=== PATIENT | male | born 1960 | race Caucasian/White ===

== ENCOUNTER 2016-12-21 10:48 | Observation (INO) | payer SELFPAY ==
[2016-12-21 12:17] LABS: BASO # 0.1 K/uL (0.0-0.2); BASO % 0.7 % (0.0-2.0); EOS # 0.5 K/uL (0.0-0.7); EOS % 6.2 % (0.0-4.0); HEMOGLOBIN 11.7 g/dL (12.0-18.0); LYMPH # 2.2 K/uL (1.0-4.3); LYMPH % 27.5 % (20.0-40.0); MEAN CELL VOLUME 85.3 fL (80.0-94.0); MEAN CORPUSCULAR HEMOGLOBIN 28.3 pg (27.0-31.0); MEAN CORPUSCULAR HGB CONC 33.2 g/dL (33.0-37.0); MEAN PLATELET VOLUME 8.7 fL (7.2-11.7); MONO # 0.5 K/uL (0.0-0.8); MONO % 6.7 % (0.0-10.0); NEUT # 4.7 K/uL (1.8-7.0); NEUT % 58.9 % (50.0-75.0); RBC 4.14 Mil/uL (4.40-5.90); RED CELL DISTRIBUTION WIDTH 13.8 % (11.5-14.5); WHITE BLOOD COUNT 7.9 K/uL (4.8-10.8)
[2016-12-21 12:25] LABS: PROTHROMBIN TIME 11.7 SECONDS (9.7-12.2)
[2016-12-21 12:27] LABS: ALBUMIN 3.4 g/dL (3.5-5.0)
[2016-12-21 12:29] LABS: GFR AFRICAN-AMERICAN > 60; GFR NON-AFRICAN AMERICAN > 60
[2016-12-21 12:30] LABS: ALT/SGPT 23 U/L (21-72); AST/SGOT 23 U/L (17-59); BLOOD UREA NITROGEN 15 mg/dL (9-20); CALCIUM 8.6 mg/dl (8.6-10.4)
[2016-12-21 12:38] LABS: CK-MB 0.82 ng/mL (0.0-3.38)
[2016-12-21 12:39] LABS: B-TYPE NATRIURETIC PEPTIDE 480 pg/mL (0-900)
--- NOTE | 2016-12-21 13:01 | RAD ---
HISTORY: Chest pain COMPARISON: No prior. FINDINGS: LUNGS: Poor inspiration with low lung volumes, minor crowded bronchovascular markings and mild bibasilar atelectasis. Central pulmonary vasculature is slightly increased likely due to poor inspiration as well. PLEURA: No significant pleural effusion identified, no pneumothorax apparent. CARDIOVASCULAR: Sternotomy wires and CABG clips. OSSEOUS STRUCTURES: Cardiomegaly. No significant abnormalities. VISUALIZED UPPER ABDOMEN: Normal. OTHER FINDINGS: None. IMPRESSION: Poor inspiration with low lung volumes, minor crowded bronchovascular markings and mild bibasilar atelectasis. Central pulmonary vasculature is slightly increased likely due to poor inspiration as well.
--- NOTE | 2016-12-21 13:43 | C.PDOC ---
History Of Present Illness Patient is a 56 y/o male, whose PMHx includes diabetes, HTN, that presents to the ED for evaluation of chest pain, and swelling to lower extremities. Patient reports having bypasss surgery more than a month ago, and denies following up with PMD or oncology admin after the surgery. Patient states he ran out of his chronic medications, but is unable to recall name of any of his medications. Patient history translated by computer plant production worker (Farshad Crow [id number]). Time Seen by Provider: 12/21/16 12:04 Chief Complaint (Nursing): Chest Pain History Per: Patient, Account Support Analyst History/Exam Limitations: language barrier Onset/Duration Of Symptoms: Days Current Symptoms Are (Timing): Still Present Quality: Tightness, "Pain" Associated Symptoms: denies: Nausea, Dyspnea, Diaphoresis, Syncope Modifying Factors: None Exacerbating Factors: None Alleviating Factors: None Recent travel outside of the [place]: No Additional History Per: Patient Past Medical History Reviewed: Historical Data, Nursing Documentation, Vital Signs Vital Signs: Last Vital Signs Temp 97.9 F 12/21/16 13:02 Pulse 77 12/21/16 13:02 Resp 16 12/21/16 13:02 BP 129/83 12/21/16 13:02 Pulse Ox 96 12/21/16 15:16 - Medical History PMH: Diabetes, HTN, Hypercholesterolemia Surgical History: Hernia Repair (x2) Family History: States: Unknown Family Hx - Social History Hx Alcohol Use: No Hx Substance Use: No - Immunization History Hx Tetanus Toxoid Vaccination: No Hx Influenza Vaccination: No Hx Pneumococcal Vaccination: No Review Of Systems Except As Marked, All Systems Reviewed And Found Negative. Constitutional: Negative for: Fever, Chills Cardiovascular: Positive for: Chest Pain. Negative for: Palpitations, Light Headedness Respiratory: Negative for: Cough, Shortness of Breath, Sputum Gastrointestinal: Negative for: Nausea, Vomiting, Abdominal Pain Musculoskeletal: Negative for: Leg Pain Skin: Positive for: Other (BL leg swelling) Neurological: Negative for: Weakness, Numbness, Headache, Dizziness Physical Exam - Physical Exam Appears: Non-toxic, No Acute Distress Skin: Normal Color, Warm, Dry Head: Atraumatic, Normacephalic Eye(s): bilateral: Normal Inspection, EOMI Neck: Normal ROM, Supple Chest: Symmetrical, No Tenderness Cardiovascular: Rhythm Regular, No Murmur Respiratory: Decreased Breath Sounds, No Rales, No Rhonchi, No Wheezing Gastrointestinal/Abdominal: Soft, No Tenderness, No Guarding, No Rebound Extremity: Normal ROM, No Tenderness, Pedal Edema, Capillary Refill (<2 sec.), No Deformity Pulses: Left Dorsalis Pedis: Normal, Right Dorsalis Pedis: Normal Neurological/Psych: Oriented x3, Normal Speech, Normal Cognition, Normal Motor, Normal Sensation ED Course And Treatment - Laboratory Results Result Diagrams: 12/21/16 12:08 12/21/16 12:08 ECG: Interpreted By Me ECG Rhythm: Sinus Rhythm, ST/T Changes Interpretation Of ECG: Q in III and aVF O2 Sat by Pulse Oximetry: 96 (on RA) Pulse Ox Interpretation: Normal - Other Rad CXR X-Ray: Viewed By Me, Read By Radiologist Interpretation: Accession No. : [id number]. Patient Name / ID : WANDA PATTON / [id number]. Exam Date : 12/21/2016 12:00:20 ( Approved ). Study Comment : Sex / Age : M / [id number]. Creator : Jesus Alberto Quezada MD. Dictator : Jesus Alberto Quezada MD. Applications Developer : Heel Coverer : Jesus Alberto Quezada MD. Approver2 : Report Date : 12/21/2016 12:59:37. My Comment : . HISTORY: Chest pain. COMPARISON: No prior. FINDINGS: LUNGS: Poor inspiration with low lung volumes, minor crowded bronchovascular markings and mild bibasilar atelectasis. Central pulmonary vasculature is slightly increased likely due to poor inspiration as well. PLEURA: No significant pleural effusion identified, no pneumothorax apparent. CARDIOVASCULAR: Sternotomy wires and CABG clips. OSSEOUS STRUCTURES: Cardiomegaly. No significant abnormalities. VISUALIZED UPPER ABDOMEN: Normal. OTHER FINDINGS: None. IMPRESSION: Poor inspiration with low lung volumes, minor crowded bronchovascular markings and mild bibasilar atelectasis. Central pulmonary vasculature is slightly increased likely due to poor inspiration as well. Progress Note: Blood work, CXR, EKG ordered and reviewed. Case was d/w Hospitalist environmental lawyer who instructed to put patient for tele obs on service. Disposition - Disposition Disposition: HOSPITALIZED Disposition Time: 14:24 Condition: FAIR - Clinical Impression Clinical Impression: Chest pain, Lower extremity edema - PA / DEGREASER OPERATOR / Resident Statement MD/DO has reviewed & agrees with the documentation as recorded. - Scribe Statement The provider has reviewed the documentation as recorded by the Scribe Raymundo Parekh All medical record entries made by the Маринаibjerilyn were at my direction and personally dictated by me. I have reviewed the chart and agree that the record accurately reflects my personal performance of the history, physical exam, medical decision making, and the department course for this patient. I have also personally directed, reviewed, and agree with the discharge instructions and disposition. Decision To Admit - Pt Status Changed To: Hospital Disposition Of: Observation - . Bed Request Type: Telemetry Patient Diagnosis: Chest pain, Lower extremity edema
--- NOTE | 2016-12-21 15:25 | CP.PCM.HP ---
<Marzena Blair - Last Filed: 12/21/16 18:31> History of Present Illness - History of Present Illness History of Present Illness: CC: chest pressure HPI: 56 year old male with PMHx significant for diabetes, HTN, hypercholesterolemia , s/p suspected CABG procedure at [facility] one month prior presents with chest pressure at rest for the past week with accompanying swelling of the lower extremities bilaterally. Patient states that the swelling has been intermittent off and on since the procedure. He denies radiation of pain, though admits to it being reproducible with palpation. Patient states that following the procedure, he was asked to take 6 medications for which he does not know the names of. He states that he was taking the medications until he ran out. He was asked to follow up with a entry level buyer after being discharged from [facility] however, he could not afford the $400 cost associated with the doctor's visit. Patient admits to paresthesias in his right hand. He admits to blurry vision for the past few weeks as well. He denies shortness of breath , headaches, palpitations, nausea, vomiting, diarrhea, constipation, recent travel, back pain or cough at this time. Patient speaks sami and thus health screener services were used for this evaluation. ([facility] #[id number]) PMHx- as stated above PSHx- suspected CABG at [facility], 2 hernia repair surgeries, vessel graft. Fam Hx- Mom had HTN Social Hx- Patient smoked 2 ppd for 30-40 years. He states that he quit just prior to the surgery at [facility] Meds- 6 medications but does not know the name. Will ask friend to bring in meds Allergies- NKDA Does not follow with PMD or Health Information Technician outpatient. Present on Admission - Present on Admission Any Indicators Present on Admission: No Review of Systems - Review of Systems Systems not reviewed;Unavailable: Language Barrier (German speaking) - Constitutional Constitutional: absent: Chills, Daytime Sleepiness, Increased Appetite - EENT Eyes: Blurred Vision Nose/Mouth/Throat: absent: Nasal Congestion, Dry Mouth - Cardiovascular Cardiovascular: Chest Pain. absent: Diaphoresis, Dyspnea, Lightheadedness, Palpitations, Radiating Pain, Syncope - Respiratory Respiratory: absent: Cough, Dyspnea, Hemoptysis, Chest Congestion - Gastrointestinal Gastrointestinal: absent: Nausea, Vomiting - Musculoskeletal Musculoskeletal: absent: Back Pain, Numbness - Integumentary Integumentary: Dry Skin, Swelling. absent: Sores - Neurological Neurological: Paresthesias (right hand) - Psychiatric Psychiatric: absent: Anxiety, Change in Appetite - Hematologic/Lymphatic Hematologic: absent: Easy Bleeding, Easy Bruising Past Patient History - Past Social History Smoking Status: Former Smoker (30-40 years) - CARDIAC Hx Hypercholesterolemia: Yes Hx Hypertension: Yes - ENDOCRINE/METABOLIC Hx Endocrine Disorders: Yes Hx Diabetes Mellitus Type 2: Yes - PSYCHIATRIC Hx Substance Use: No - SURGICAL HISTORY Hx Surgeries: Yes Other/Comment: heart surgery- open heart a month ago Meds Allergies/Adverse Reactions: Allergies Allergy/AdvReac Type Severity Reaction Status Date / Time No Known Allergies Allergy Verified 12/21/16 11:33 Physical Exam - Constitutional Appears: Non-toxic, No Acute Distress - Head Exam Head Exam: ATRAUMATIC, NORMAL INSPECTION, NORMOCEPHALIC - Eye Exam Eye Exam: EOMI, Normal appearance, PERRL Pupil Exam: NORMAL ACCOMODATION, PERRL - ENT Exam ENT Exam: Mucous Membranes Moist, Normal Exam - Respiratory Exam Respiratory Exam: NORMAL BREATHING PATTERN. absent: Wheezes - Cardiovascular Exam Cardiovascular Exam: REGULAR RHYTHM, +S1, +S2 Additional comments: midline healed incision noted - Expanded Cardiovascular Exam Expanded Peripheral pulses: Dorsalis Pedis Left: 2+, Dorsalis Pedis Right: 2+ - GI/Abdominal Exam GI & Abdominal Exam: Distended, Normal Bowel Sounds, Soft. absent: Firm, Guarding - Extremities Exam Extremities exam: Positive for: full ROM, normal capillary refill (vesset harvest surgery incision site noted on right lower extremity), pedal edema, pedal pulses present. Negative for: tenderness - Back Exam Back exam: FULL ROM - Neurological Exam Neurological exam: Alert, CN II-XII Intact, Oriented x3 - Psychiatric Exam Psychiatric exam: Normal Affect, Normal Mood - Skin Skin Exam: Dry, Intact, Normal Color, Warm Results - Vital Signs Recent Vital Signs: Last Vital Signs Temp 97.9 F 12/21/16 13:02 Pulse 77 12/21/16 13:02 Resp 16 12/21/16 13:02 BP 129/83 12/21/16 13:02 Pulse Ox 96 12/21/16 15:16 - Labs Result Diagrams: 12/21/16 12:08 12/21/16 12:08 Assessment & Plan (1) Chest pain Assessment and Plan: Patient had suspected CABG at [facility] last month November 2016 Release forms signed and faxed out- Follow up JARVIS 1 negative. F/U JARVIS 2 and 3 with EKGs Plavix 75 mg PO daily, Lopressor 25 mg PO BID, Zestril 5 mg PO daily, ASA 81 mg , Crestor 5 mg PO HS (Will need to confirm home meds. Patient has been asked to speak to his friend about bringing in his list of medications) F/U echo Portable CXR- poor inspiratory effort. Ordered AP/Lateral CXR as patient can stand and ambulate with cane Dr. Luciano ( Cardiology) consulted- F/U recommendations F/U AM labs Status: Acute (2) S/P CABG (coronary artery bypass graft) Assessment and Plan: Refer to above. Will need records from [facility] confirming whether patient had CABG as well as the vessel involvement. F/U cardiology recommendations Status: Acute (3) Lower extremity edema Assessment and Plan: F/U venous dopplers On Lasix 20 mg IV daily F/U echo Status: Acute (4) Diabetes mellitus Assessment and Plan: Accuchecks ACHS Insulin sliding scale F/U Hgb A1c Status: Acute (5) HTN (hypertension) Assessment and Plan: Normotensive. Lopresor and Zestril on board Cont to monitor Status: Chronic (6) Hypercholesteremia Assessment and Plan: F/U Lipid Panel Crestor 5 mg PO HS Diet and exercise counseling reinforced Status: Chronic (7) Prophylactic measure Assessment and Plan: Pepcid 20 mg PO BID Hep SC Q12 Status: Acute <Wade Silva H - Last Filed: 12/22/16 09:50> Results - Vital Signs Recent Vital Signs: Last Vital Signs Temp 97.7 F 12/22/16 07:00 Pulse 80 12/22/16 07:00 Resp 20 12/22/16 07:00 BP 133/87 12/22/16 09:27 Pulse Ox 96 12/22/16 07:00 - Labs Result Diagrams: 12/22/16 06:12 12/22/16 06:12 Labs: Laboratory Results - last 24 hr 12/21/16 12/21/16 12/21/16 18:10 18:15 21:02 WBC RBC Hgb Hct MCV MCH MCHC RDW Plt Count MPV Neut % (Auto) Lymph % (Auto) [place] % (Auto) Eos % (Auto) Baso % (Auto) Neut # Lymph # [place] # Eos # Baso # Sodium Potassium Chloride Carbon Dioxide Anion Gap BUN Creatinine Est GFR ( Amer) Est GFR (Non-Af Amer) POC Glucose (mg/dL) 201 H Random Glucose 171 H Hemoglobin A1c Calcium Phosphorus Magnesium Total Bilirubin AST ALT Alkaline Phosphatase Total Creatine Kinase 48 L CK-MB (Mass) 0.82 Troponin I, Quant < 0.0120 Total Protein Albumin Globulin Albumin/Globulin Ratio Triglycerides Cholesterol LDL Cholesterol Direct HDL Cholesterol Free T4 TSH 3rd Generation 12/22/16 12/22/16 12/22/16 00:04 06:12 06:12 WBC 8.2 RBC 4.08 L Hgb 11.9 L Hct 34.8 L MCV 85.2 MCH 29.3 MCHC 34.4 RDW 14.1 Plt Count 268 MPV 8.6 Neut % (Auto) 56.4 Lymph % (Auto) 31.1 [place] % (Auto) 5.8 Eos % (Auto) 6.0 H Baso % (Auto) 0.7 Neut # 4.6 Lymph # 2.5 [place] # 0.5 Eos # 0.5 Baso # 0.1 Sodium 137 Potassium 3.6 Chloride 98 Carbon Dioxide 29 Anion Gap 14 BUN 17 Creatinine 0.9 Est GFR ( Amer) > 60 Est GFR (Non-Af Amer) > 60 POC Glucose (mg/dL) Random Glucose 194 H Hemoglobin A1c Calcium 8.5 L Phosphorus 3.8 Magnesium 1.8 Total Bilirubin 0.6 AST 20 ALT 23 Alkaline Phosphatase 88 Total Creatine Kinase 38 L 43 L CK-MB (Mass) 0.79 0.82 Troponin I, Quant < 0.0120 Total Protein 7.0 Albumin 3.5 Globulin 3.5 Albumin/Globulin Ratio 1.0 Triglycerides 220 H Cholesterol 141 LDL Cholesterol Direct 87 HDL Cholesterol 28 L Free T4 TSH 3rd Generation 1.67 12/22/16 12/22/16 12/22/16 06:12 06:12 06:19 WBC RBC Hgb Hct MCV MCH MCHC RDW Plt Count MPV Neut % (Auto) Lymph % (Auto) [place] % (Auto) Eos % (Auto) Baso % (Auto) Neut # Lymph # [place] # Eos # Baso # Sodium Potassium Chloride Carbon Dioxide Anion Gap BUN Creatinine Est GFR ( Amer) Est GFR (Non-Af Amer) POC Glucose (mg/dL) 195 H Random Glucose Hemoglobin A1c 7.6 H Calcium Phosphorus Magnesium Total Bilirubin AST ALT Alkaline Phosphatase Total Creatine Kinase CK-MB (Mass) Troponin I, Quant Total Protein Albumin Globulin Albumin/Globulin Ratio Triglycerides Cholesterol LDL Cholesterol Direct HDL Cholesterol Free T4 1.14 TSH 3rd Generation Attending/Attestation - Attestation I have personally seen and examined this patient.: Yes I have fully participated in the care of the patient.: Yes I have reviewed all pertinent clinical information: Yes Notes (Text): 12/22/16 09:48 Medical attending: Patient was seen and examined by me, agrees the above note by medical staff physician. Would have to try to get some information from [facility]. It appears that he had a lot of done there however the patient appears to have very poor insight as to his medication as well as his medical history that led up to the CABG surgery he had. This may be related to language barrier as he is not able to speak or understand Wolof. Next from what I understand the patient has not taken any medication whatsoever after leaving [facility]. At this time will get additional troponins, repeat EKGs, echo, and so will place the patient on aspirin statin medication for blood pressure and also Plavix at this time -however ultimately will need to get the medical records from [facility] At the time I saw him in ER bed 3, he appeared to be comfortable he is not under any acute distress. The pain that he was having did appear to be reproducible with pressing of the anterior chest wall. Thank you very much, Wade Silva
[2016-12-21 18:35] LABS: CK-MB 0.82 ng/mL (0.0-3.38)
[2016-12-21 20:03] VITALS: RESP 20
[2016-12-21] MEDS: (Novolog) Insulin Aspart, Recombinant 100 u/ml 10 ml vial SC SCH (22:01)
[2016-12-22 00:50] LABS: CK-MB 0.79 ng/mL (0.0-3.38)
[2016-12-22 06:40] LABS: ALBUMIN 3.5 g/dL (3.5-5.0)
[2016-12-22 06:43] LABS: CK-MB 0.82 ng/mL (0.0-3.38); GFR AFRICAN-AMERICAN > 60; GFR NON-AFRICAN AMERICAN > 60
[2016-12-22 06:44] LABS: ALT/SGPT 23 U/L (21-72); AST/SGOT 20 U/L (17-59); BLOOD UREA NITROGEN 17 mg/dL (9-20); CALCIUM 8.5 mg/dl (8.6-10.4)
[2016-12-22 06:45] LABS: HDL CHOLESTEROL 28 mg/dL (30-70); MAGNESIUM 1.8 mg/dL (1.6-2.3)
[2016-12-22 06:52] LABS: BASO # 0.1 K/uL (0.0-0.2); BASO % 0.7 % (0.0-2.0); EOS # 0.5 K/uL (0.0-0.7); HEMOGLOBIN 11.9 g/dL (12.0-18.0); LYMPH # 2.5 K/uL (1.0-4.3); LYMPH % 31.1 % (20.0-40.0); MEAN CELL VOLUME 85.2 fL (80.0-94.0); MEAN CORPUSCULAR HEMOGLOBIN 29.3 pg (27.0-31.0); MEAN CORPUSCULAR HGB CONC 34.4 g/dL (33.0-37.0); MEAN PLATELET VOLUME 8.6 fL (7.2-11.7); MONO # 0.5 K/uL (0.0-0.8); MONO % 5.8 % (0.0-10.0); NEUT # 4.6 K/uL (1.8-7.0); NEUT % 56.4 % (50.0-75.0); NRBC % 0.3 % (0.0-2.0); RBC 4.08 Mil/uL (4.40-5.90); RED CELL DISTRIBUTION WIDTH 14.1 % (11.5-14.5); WHITE BLOOD COUNT 8.2 K/uL (4.8-10.8)
[2016-12-22 06:56] LABS: LDL CHOLESTEROL 87 mg/dL (0-129)
[2016-12-22] MEDS: (Novolog) Insulin Aspart, Recombinant 100 u/ml 10 ml vial SC SCH ×4 (08:50→22:01)
--- NOTE | 2016-12-22 10:03 | RAD ---
HISTORY: chest pressure poor inspiratory effort on portable COMPARISON: 12/21/2016 at 12:12 TECHNIQUE: Chest PA and lateral FINDINGS: LUNGS: Shallow lung volumes as before probably contributing to the central pulmonary vasculature prominence/crowded appearance. No consolidation. PLEURA: No significant pleural effusion identified. No pneumothorax apparent. CARDIOVASCULAR: Mild cardiomegaly. Sternotomy and probable coronary artery bypass clips, at least in part OSSEOUS STRUCTURES: No significant abnormalities. VISUALIZED UPPER ABDOMEN: Normal. OTHER FINDINGS: None. IMPRESSION: As before shallow lung volumes. No interval consolidation or fernandez worsening pulmonary vascular congestion. Cardiomegaly postsurgical changes.
--- NOTE | 2016-12-22 16:06 | CP.PCM.PN ---
<Tiffanie Chavez E - Last Filed: 12/22/16 19:41> Subjective - Date & Time of Evaluation Date of Evaluation: 12/22/16 Time of Evaluation: 09:50 - Subjective Subjective: Medicine Note (PGY 1): Dr. Silva's service Participant Administrator ( Wolof) : [id number] (Missyemeli Howard ) Patient seen and examined at beside. Patient was resting comfortably in bed. Patient reports that he is feeling better. Patient denies chest pain, sob, palpitations, nausea, vomiting, fever or chills. Patient is tolerating diet and ambulating. Objective - Vital Signs/Intake and Output Vital Signs (last 24 hours): Temp Pulse Resp BP Pulse Ox 97.7 F 80 20 133/87 96 12/22/16 07:00 12/22/16 07:00 12/22/16 07:00 12/22/16 09:27 12/22/16 07:00 - Medications Medications: Current Medications Aspirin (Ecotrin) 81 mg PO DAILY [facility] Last Admin: 12/22/16 09:22 Dose: 81 mg Clopidogrel Bisulfate (Plavix) 75 mg PO DAILY [facility] Last Admin: 12/22/16 09:21 Dose: 75 mg Famotidine (Pepcid) 20 mg PO BID [facility] Last Admin: 12/22/16 09:21 Dose: 20 mg Furosemide (Lasix) 20 mg IVP DAILY [facility] Last Admin: 12/22/16 09:27 Dose: 20 mg Heparin Sodium (Porcine) (Heparin) 5,000 units SC Q12 [facility] Last Admin: 12/22/16 09:22 Dose: 5,000 units Insulin Aspart (Novolog) [address] [facility] PRN Reason: Protocol Last Admin: 12/22/16 12:19 Dose: 4 unit Lisinopril (Zestril) 5 mg PO DAILY [facility] Last Admin: 12/22/16 09:21 Dose: 5 mg Metoprolol Tartrate (Lopressor) 25 mg PO BID [facility] Last Admin: 12/22/16 09:22 Dose: 25 mg Pneumococcal Polyvalent Vaccine (Pneumovax 23 Vaccine) 0.5 ml IM .ONCE ONE Stop: 12/23/16 10:01 Rosuvastatin Calcium (Crestor) 5 mg PO HS [facility] Last Admin: 12/21/16 21:59 Dose: 5 mg - Labs Labs: 12/22/16 06:12 12/22/16 06:12 PT 11.7 SECONDS (9.7-12.2) 12/21/16 12:08 INR 1.0 12/21/16 12:08 APTT 27 SECONDS (21-34) 12/21/16 12:08 - Constitutional Appears: Well, No Acute Distress - Head Exam Head Exam: NORMAL INSPECTION, NORMOCEPHALIC - Eye Exam Eye Exam: EOMI, Normal appearance - ENT Exam ENT Exam: Mucous Membranes Moist, Normal Exam - Respiratory Exam Respiratory Exam: Clear to Ausculation Bilateral, NORMAL BREATHING PATTERN - Cardiovascular Exam Cardiovascular Exam: REGULAR RHYTHM, +S1, +S2 - GI/Abdominal Exam GI & Abdominal Exam: Soft, Normal Bowel Sounds - Extremities Exam Extremities Exam: Normal Capillary Refill, Normal Inspection, Pedal Edema - Neurological Exam Neurological Exam: Alert, Awake, Oriented x3 - Psychiatric Exam Psychiatric exam: Normal Affect, Normal Mood - Skin Skin Exam: Dry, Intact, Normal Color, Warm Assessment and Plan (1) Chest pain Assessment & Plan: Patient had suspected CABG at [facility] last month November 2016 Release forms signed and faxed out- Follow up * JARVIS 1 negative. F/U * JARVIS 2 * F/u JARVIS 3 * EKGs : No acute changes * Echo: EF>50% ( Unofficial Read) * Chest X- Ray: No interval consolidation or fernandez worsening pulmonary vascular congestion. Cardiomegaly postsurgical changes. * Plavix 75 mg PO daily, * Lopressor 25 mg PO BID * Zestril 5 mg PO daily * ASA 81 mg * Crestor [address] Luciano ( Cardiology) consulted---> help appreciated As per cardiology recommendations: * Outpatient stress test * Continue medication regimen Status: Acute (2) S/P CABG (coronary artery bypass graft) Assessment & Plan: Pending record request from [facility] confirming whether patient had CABG as well as the vessel involvement. As per cardiology recommendations: * Outpatient stress test * Continue medication regimen Status: Acute (3) Lower extremity edema Assessment & Plan: Improving Echo : EF> 50% ( Unofficial read) Pending venous dopplers Lasix 20 mg IV daily Status: Acute (4) Diabetes mellitus Assessment & Plan: HgbA1c: 7.6 Accuchecks ACHS Insulin sliding scale Monitor Status: Acute (5) HTN (hypertension) Assessment & Plan: Normotensive. Lopresor 25mg PO BID Lisinopril ( Zestril) 5 mg PO Daily Continue to monitor Status: Chronic (6) Hypercholesteremia Assessment & Plan: Lipid Panel: * Trigly: 220 * LDL: 87 * HDL: 28 Crestor 5 mg PO HS Diet and exercise counseling reinforced Status: Chronic (7) Prophylactic measure Assessment & Plan: SCD contraindicated due to pedal edema Pepcid 20 mg PO BID Hep SC Q12 Status: Acute <Wade Silva H - Last Filed: 12/23/16 07:12> Objective - Vital Signs/Intake and Output Vital Signs (last 24 hours): Temp Pulse Resp BP Pulse Ox 97.8 F 65 20 112/73 97 12/22/16 23:00 12/23/16 03:15 12/22/16 23:00 12/22/16 23:00 12/22/16 23:00 - Medications Medications: Current Medications Aspirin (Ecotrin) 81 mg PO DAILY [facility] Last Admin: 12/22/16 09:22 Dose: 81 mg Clopidogrel Bisulfate (Plavix) 75 mg PO DAILY [facility] Last Admin: 12/22/16 09:21 Dose: 75 mg Famotidine (Pepcid) 20 mg PO BID [facility] Last Admin: 12/22/16 17:39 Dose: 20 mg Furosemide (Lasix) 20 mg IVP DAILY [facility] Last Admin: 12/22/16 09:27 Dose: 20 mg Heparin Sodium (Porcine) (Heparin) 5,000 units SC Q12 [facility] Last Admin: 12/22/16 21:41 Dose: 5,000 units Insulin Aspart (Novolog) [address] [facility] PRN Reason: Protocol Last Admin: 12/22/16 22:01 Dose: Not Given Lisinopril (Zestril) 5 mg PO DAILY [facility] Last Admin: 12/22/16 09:21 Dose: 5 mg Metoprolol Tartrate (Lopressor) 25 mg PO BID [facility] Last Admin: 12/22/16 17:39 Dose: 25 mg Pneumococcal Polyvalent Vaccine (Pneumovax 23 Vaccine) 0.5 ml IM .ONCE ONE Stop: 12/23/16 10:01 Rosuvastatin Calcium (Crestor) 5 mg PO HS [facility] Last Admin: 12/22/16 21:42 Dose: 5 mg - Labs Labs: 12/23/16 06:06 12/23/16 06:06 PT 11.7 SECONDS (9.7-12.2) 12/21/16 12:08 INR 1.0 12/21/16 12:08 APTT 27 SECONDS (21-34) 12/21/16 12:08 Attending/Attestation - Attestation I have personally seen and examined this patient.: Yes I have fully participated in the care of the patient.: Yes I have reviewed all pertinent clinical information, including history, physical exam and plan: Yes Notes (Text): Medical attending: Patient was seen and examined by me, agrees the above note by medical coordinator pesticide use. As documented above the resident note the cardiac enzymes negative 3. He was not having any active chest pain when we saw him, he still had some reproducible chest pain with palpation We had translator interpreter via the computer service and a Ray-Carlotta. 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 He had veins taken from his right lower extremity We explained to the patient that were waiting on echo result to return. Even with the translator interpreter the patient explains that he has no idea what medications he supposed to be on, and he never had any follow-up at all I suspect a lot of this is due to the patient's language barrier, as well as extremely poor insight into his own health. At this time we have him on aspirin, Plavix, statin, as well as blood pressure control using a beta humble as well. He looks to be well again were still waiting on echo Thank you very much, Wade Silva
--- NOTE | 2016-12-22 17:38 | CP.PCM.CON ---
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 The chest pain is left sided and described as sharp, non-radiating. Pain is rated 6-8 out of 10. No clear aggravating or alleviating factors. Associated symptoms include mild swelling in both legs, both of which were used to source vessels for the surgery. Patient states that he has run out of his medications one month ago and has no money. He is requesting one months supply of medications. Denies fever, chills, nausea, vomiting, palpitations, SOB, abdominal pain, recent travel. PMD: none Current Medications: - ASA 81 mg PO daily - Plavix 75 mg PO daily - Lasix 20 mg IVP daily - Heparain 5000 U SC Q12 - Zestril 5mg PO daily - Lopressor 25 mg PO bid - Crestor 5mg PO HS Allergies: NKDA PMHx: diabets, HTN, hypercholesterolemia PSHx: CABG SocHx: - smoked 2 packs of cigarettes for 30 years, states he quit smoking 1 mo ago; denies alcohol or drug use - lives with friends - unemployed FamHx: mother has HTN, patient states he did not know his father Review of Systems - Review of Systems All systems: reviewed and no additional remarkable complaints except Review of Systems: negative except per hpi Past Patient History - Infectious Disease Hx of Infectious Diseases: None - Tetanus Immunizations Tetanus Immunization: Unknown - Past Medical History & Family History Past Medical History?: Yes - Past Social History Smoking Status: Former Smoker Chewing Tobacco Use: No Cigar Use: No Alcohol: None Drugs: Denies Home Situation {Lives}: Alone Domestic Violence: Negative - CARDIAC Hx Hypercholesterolemia: Yes Hx Hypertension: Yes - PULMONARY Hx Respiratory Disorders: No - NEUROLOGICAL Hx Neurological Disorder: No - HEENT Hx HEENT Problems: No - RENAL Hx Chronic Kidney Disease: No - ENDOCRINE/METABOLIC Hx Endocrine Disorders: Yes Hx Diabetes Mellitus Type 2: Yes - HEMATOLOGICAL/ONCOLOGICAL Hx Blood Disorders: No - INTEGUMENTARY Hx Dermatological Problems: No - MUSCULOSKELETAL/RHEUMATOLOGICAL Hx Musculoskeletal Disorders: No Hx Falls: No - GASTROINTESTINAL Hx Gastrointestinal Disorders: No - GENITOURINARY/GYNECOLOGICAL Hx Genitourinary Disorders: No - PSYCHIATRIC Hx Psychophysiologic Disorder: No Hx Substance Use: No - SURGICAL HISTORY Hx Surgeries: Yes Other/Comment: heart surgery- open heart a month ago - ANESTHESIA Hx Anesthesia: Yes Hx Anesthesia Reactions: No Meds Allergies/Adverse Reactions: Allergies Allergy/AdvReac Type Severity Reaction Status Date / Time No Known Allergies Allergy Verified 12/21/16 11:33 - Medications Medications: Current Medications Aspirin (Ecotrin) 81 mg PO DAILY [facility] Last Admin: 12/22/16 09:22 Dose: 81 mg Clopidogrel Bisulfate (Plavix) 75 mg PO DAILY [facility] Last Admin: 12/22/16 09:21 Dose: 75 mg Famotidine (Pepcid) 20 mg PO BID [facility] Last Admin: 12/22/16 09:21 Dose: 20 mg Furosemide (Lasix) 20 mg IVP DAILY [facility] Last Admin: 12/22/16 09:27 Dose: 20 mg Heparin Sodium (Porcine) (Heparin) 5,000 units SC Q12 [facility] Last Admin: 12/22/16 09:22 Dose: 5,000 units Insulin Aspart (Novolog) 0 unit SC ACHS [facility] PRN Reason: Protocol Last Admin: 12/22/16 17:10 Dose: Not Given Lisinopril (Zestril) 5 mg PO DAILY [facility] Last Admin: 12/22/16 09:21 Dose: 5 mg Metoprolol Tartrate (Lopressor) 25 mg PO BID [facility] Last Admin: 12/22/16 09:22 Dose: 25 mg Pneumococcal Polyvalent Vaccine (Pneumovax 23 Vaccine) 0.5 ml IM .ONCE ONE Stop: 12/23/16 10:01 Rosuvastatin Calcium (Crestor) [address] [facility] Last Admin: 12/21/16 21:59 Dose: 5 mg Physical Exam - Constitutional Appears: Non-toxic, No Acute Distress - Head Exam Head Exam: ATRAUMATIC, NORMAL INSPECTION, NORMOCEPHALIC - Eye Exam Eye Exam: EOMI - ENT Exam ENT Exam: Mucous Membranes Moist - Neck Exam Neck exam: Positive for: Full Rom, Normal Inspection - Respiratory Exam Respiratory Exam: NORMAL BREATHING PATTERN. absent: Respiratory Distress - Cardiovascular Exam Cardiovascular Exam: +S1, +S2 - GI/Abdominal Exam GI & Abdominal Exam: Normal Bowel Sounds, Soft. absent: Tenderness - Extremities Exam Extremities exam: Positive for: full ROM, normal inspection - Neurological Exam Neurological exam: Alert, Oriented x3 - Psychiatric Exam Psychiatric exam: Normal Affect, Normal Mood - Skin Skin Exam: Dry, Intact, Normal Color, Warm Results - Vital Signs Recent Vital Signs: Last Vital Signs Temp 97.5 F L 12/22/16 15:08 Pulse 70 12/22/16 16:24 Resp 20 12/22/16 15:08 BP 113/69 12/22/16 15:08 Pulse Ox 97 12/22/16 15:08 - Labs Result Diagrams: 12/22/16 06:12 12/22/16 06:12 Labs: Laboratory Results - last 24 hr 12/21/16 12/21/16 12/21/16 18:10 18:15 21:02 WBC RBC Hgb Hct MCV MCH MCHC RDW Plt Count MPV Neut % (Auto) Lymph % (Auto) [place] % (Auto) Eos % (Auto) Baso % (Auto) Neut # Lymph # [place] # Eos # Baso # Sodium Potassium Chloride Carbon Dioxide Anion Gap BUN Creatinine Est GFR ( Amer) Est GFR (Non-Af Amer) POC Glucose (mg/dL) 201 H Random Glucose 171 H Hemoglobin A1c Calcium Phosphorus Magnesium Total Bilirubin AST ALT Alkaline Phosphatase Total Creatine Kinase 48 L CK-MB (Mass) 0.82 Troponin I, Quant < 0.0120 Total Protein Albumin Globulin Albumin/Globulin Ratio Triglycerides Cholesterol LDL Cholesterol Direct HDL Cholesterol Free T4 TSH 3rd Generation 12/22/16 12/22/16 12/22/16 00:04 06:12 06:12 WBC 8.2 RBC 4.08 L Hgb 11.9 L Hct 34.8 L MCV 85.2 MCH 29.3 MCHC 34.4 RDW 14.1 Plt Count 268 MPV 8.6 Neut % (Auto) 56.4 Lymph % (Auto) 31.1 [place] % (Auto) 5.8 Eos % (Auto) 6.0 H Baso % (Auto) 0.7 Neut # 4.6 Lymph # 2.5 [place] # 0.5 Eos # 0.5 Baso # 0.1 Sodium 137 Potassium 3.6 Chloride 98 Carbon Dioxide 29 Anion Gap 14 BUN 17 Creatinine 0.9 Est GFR ( Amer) > 60 Est GFR (Non-Af Amer) > 60 POC Glucose (mg/dL) Random Glucose 194 H Hemoglobin A1c Calcium 8.5 L Phosphorus 3.8 Magnesium 1.8 Total Bilirubin 0.6 AST 20 ALT 23 Alkaline Phosphatase 88 Total Creatine Kinase 38 L 43 L CK-MB (Mass) 0.79 0.82 Troponin I, Quant < 0.0120 Total Protein 7.0 Albumin 3.5 Globulin 3.5 Albumin/Globulin Ratio 1.0 Triglycerides 220 H Cholesterol 141 LDL Cholesterol Direct 87 HDL Cholesterol 28 L Free T4 TSH 3rd Generation 1.67 12/22/16 12/22/16 12/22/16 06:12 06:12 06:19 WBC RBC Hgb Hct MCV MCH MCHC RDW Plt Count MPV Neut % (Auto) Lymph % (Auto) [place] % (Auto) Eos % (Auto) Baso % (Auto) Neut # Lymph # [place] # Eos # Baso # Sodium Potassium Chloride Carbon Dioxide Anion Gap BUN Creatinine Est GFR ( Amer) Est GFR (Non-Af Amer) POC Glucose (mg/dL) 195 H Random Glucose Hemoglobin A1c 7.6 H Calcium Phosphorus Magnesium Total Bilirubin AST ALT Alkaline Phosphatase Total Creatine Kinase CK-MB (Mass) Troponin I, Quant Total Protein Albumin Globulin Albumin/Globulin Ratio Triglycerides Cholesterol LDL Cholesterol Direct HDL Cholesterol Free T4 1.14 TSH 3rd Generation 12/22/16 12/22/16 11:20 16:51 WBC RBC Hgb Hct MCV MCH MCHC RDW Plt Count MPV Neut % (Auto) Lymph % (Auto) [place] % (Auto) Eos % (Auto) Baso % (Auto) Neut # Lymph # [place] # Eos # Baso # Sodium Potassium Chloride Carbon Dioxide Anion Gap BUN Creatinine Est GFR ( Amer) Est GFR (Non-Af Amer) POC Glucose (mg/dL) 273 H 144 H Random Glucose Hemoglobin A1c Calcium Phosphorus Magnesium Total Bilirubin AST ALT Alkaline Phosphatase Total Creatine Kinase CK-MB (Mass) Troponin I, Quant Total Protein Albumin Globulin Albumin/Globulin Ratio Triglycerides Cholesterol LDL Cholesterol Direct HDL Cholesterol Free T4 TSH 3rd Generation Assessment & Plan - Assessment and Plan (Free Text) Assessment: A/P -recommend outpatient stress test -continue asa -cont plavix -continue lasix iv daily -lisinopril 5 daily -continue lopressor -echo pending -continue yesy Luciano
[2016-12-23 06:40] LABS: ALBUMIN 3.5 g/dL (3.5-5.0)
[2016-12-23 06:42] LABS: GFR AFRICAN-AMERICAN > 60; GFR NON-AFRICAN AMERICAN > 60
[2016-12-23 06:43] LABS: ALT/SGPT 27 U/L (21-72); AST/SGOT 19 U/L (17-59); BASO % 0.5 % (0.0-2.0); BLOOD UREA NITROGEN 20 mg/dL (9-20); EOS # 0.6 K/uL (0.0-0.7); EOS % 6.8 % (0.0-4.0); HEMOGLOBIN 12.7 g/dL (12.0-18.0); LYMPH # 2.5 K/uL (1.0-4.3); LYMPH % 30.4 % (20.0-40.0); MEAN CELL VOLUME 85.2 fL (80.0-94.0); MEAN CORPUSCULAR HEMOGLOBIN 28.1 pg (27.0-31.0); MEAN PLATELET VOLUME 8.5 fL (7.2-11.7); MONO # 0.5 K/uL (0.0-0.8); MONO % 5.5 % (0.0-10.0); NEUT # 4.7 K/uL (1.8-7.0); NEUT % 56.8 % (50.0-75.0); NRBC % 0.1 % (0.0-2.0); RBC 4.51 Mil/uL (4.40-5.90); WHITE BLOOD COUNT 8.2 K/uL (4.8-10.8)
[2016-12-23 06:44] LABS: CALCIUM 8.8 mg/dl (8.6-10.4); MAGNESIUM 1.9 mg/dL (1.6-2.3)
[2016-12-23 08:22] VITALS: O2SAT 96
[2016-12-23] MEDS: (Novolog) Insulin Aspart, Recombinant 100 u/ml 10 ml vial SC SCH ×2 (08:29→12:27)
[2016-12-23] MEDS ORDERED: Pneumococcal 23-Valent Vaccine IM ONE (10:00)
--- NOTE | 2016-12-23 12:30 | CARD ---
APPROVED REPORT EXAM: Two-dimensional and M-mode echocardiogram with Doppler and color Doppler. Other Information Quality : GoodRhythm : NSR INDICATION Chest Pain Syncope M-Mode DIMENSIONS RVDd3.05 (2.1-3.2cm)Left Atrium (MM)4.84 (2.5-4.0cm) IVSd1.09 (0.7-1.1cm)Aortic Root3.01 (2.2-3.7cm) LVDd4.33 (4.0-5.6cm)Aortic Cusp Exc.1.95 (1.5-2.0cm) PWd1.21 (0.7-1.1cm)FS (%) 15 % LVDs3.67 (2.0-3.8cm)LVEF (%)33 (>50%) Mitral Valve MV E Pkxnajhe44.7cm/sMV A Bngbykaq49.3cm/sE/A ratio1.5 TDI E/Lateral E'0.0E/Medial E'0.0 Tricuspid Valve TR Peak Noozjiav951un/sTR Peak [id number] <Conclusion> Suboptimal study Left ventricle: thickness: normal; size: normal;diffuse systolic dysfunction noted; overall ejection fraction: 35%: obtain a MUGA scan for accurate ejection fraction diastolic filling pressures: normal Mitral valve: annulus: normal: leaflets: normal: excursion: normal; no significant trans-mitral gradient: mild incompetence: left atrium: dilated Aortic valve: leaflets: normal: excursion: normal; no significant trans-aortic gradient: No significant incompetence: aortic root: normal Right sided Structures:RV appears dilated; function could not be assessed; Pulmonary valve: normal; no significant incompetence; Tricuspid valve: normal; no significant incompetence: Intra-cardiac hemodynamics: pulmonary systolic pressures: normal; central venous pressures: normal No pericardial effusion
--- NOTE | 2016-12-23 12:49 | CP.PCM.PN ---
Subjective - Date & Time of Evaluation Date of Evaluation: 12/23/16 Time of Evaluation: 12:50 - Subjective Subjective: Cardiology progress note, [place] Pt seen and examined at bedside. No acute distress. No events overnight. Pt resting comfortably. No complaints. No fevers, chills, vomiting, diarrhea, cp, sob. Objective - Vital Signs/Intake and Output Vital Signs (last 24 hours): Temp Pulse Resp BP Pulse Ox 98.2 F 88 20 125/74 96 12/23/16 08:22 12/23/16 08:22 12/23/16 08:22 12/23/16 09:07 12/23/16 08:22 - Medications Medications: Current Medications Aspirin (Ecotrin) 81 mg PO DAILY [facility] Last Admin: 12/23/16 09:06 Dose: 81 mg Clopidogrel Bisulfate (Plavix) 75 mg PO DAILY [facility] Last Admin: 12/23/16 09:06 Dose: 75 mg Famotidine (Pepcid) 20 mg PO BID [facility] Last Admin: 12/23/16 09:06 Dose: 20 mg Furosemide (Lasix) 20 mg IVP DAILY [facility] Last Admin: 12/23/16 09:07 Dose: 20 mg Heparin Sodium (Porcine) (Heparin) 5,000 units SC Q12 [facility] Last Admin: 12/23/16 09:06 Dose: 5,000 units Insulin Aspart (Novolog) 0 unit SC ACHS [facility] PRN Reason: Protocol Last Admin: 12/23/16 12:27 Dose: 3 unit Lisinopril (Zestril) 5 mg PO DAILY [facility] Last Admin: 12/23/16 09:06 Dose: 5 mg Metoprolol Tartrate (Lopressor) 25 mg PO BID [facility] Last Admin: 12/23/16 09:06 Dose: 25 mg Rosuvastatin Calcium (Crestor) 5 mg PO HS [facility] Last Admin: 12/22/16 21:42 Dose: 5 mg - Labs Labs: 12/23/16 06:06 12/23/16 06:06 PT 11.7 SECONDS (9.7-12.2) 12/21/16 12:08 INR 1.0 12/21/16 12:08 APTT 27 SECONDS (21-34) 12/21/16 12:08 - Constitutional Appears: Non-toxic, No Acute Distress - Head Exam Head Exam: ATRAUMATIC, NORMAL INSPECTION, NORMOCEPHALIC - Eye Exam Eye Exam: EOMI - ENT Exam ENT Exam: Mucous Membranes Moist - Neck Exam Neck Exam: Full ROM, Normal Inspection - Respiratory Exam Respiratory Exam: NORMAL BREATHING PATTERN. absent: Respiratory Distress - Cardiovascular Exam Cardiovascular Exam: +S1, +S2 - GI/Abdominal Exam GI & Abdominal Exam: Soft, Normal Bowel Sounds. absent: Tenderness - Back Exam Back Exam: NORMAL INSPECTION - Neurological Exam Neurological Exam: Alert, Awake, Oriented x3 - Psychiatric Exam Psychiatric exam: Normal Affect, Normal Mood - Skin Skin Exam: Dry, Intact, Normal Color, Warm Assessment and Plan - Assessment and Plan (Free Text) Assessment: A/P -recommend outpatient stress test -continue asa -cont plavix -continue lasix iv daily -lisinopril 5 daily -continue lopressor -echo pending -continue yesy Luciano
--- NOTE | 2016-12-23 13:51 | CARD ---
APPROVED REPORT EKG Measurement Heart [id number] CO [id number] [id number] <Conclusion> Normal sinus rhythm Inferior infarct, age undetermined prolonged QTc Abnormal ECG
--- NOTE | 2016-12-23 14:19 | CARD ---
APPROVED REPORT EKG Measurement Heart [id number] <Conclusion> Poor data quality, interpretation may be adversely affected Normal sinus rhythm Low voltage QRS Inferior infarct, age undetermined Abnormal ECG
[2016-12-23 16:20] VITALS: BP 108/73; PULSE 81; TEMP 98.3
--- NOTE | 2016-12-23 18:20 | CP.PCM.DIS ---
<Tiffanie Chavez E - Last Filed: 12/23/16 18:39> Provider - Provider Date of Admission: 12/21/16 14:23 Attending physician: Wade Silva DO Time Spent in preparation of Discharge (in minutes): 45 Diagnosis - Discharge Diagnosis (1) Chest pain Status: Acute (2) S/P CABG (coronary artery bypass graft) Status: Acute (3) Lower extremity edema Status: Acute (4) Diabetes mellitus Status: Acute (5) HTN (hypertension) Status: Chronic (6) Hypercholesteremia Status: Chronic (7) Prophylactic measure Status: Acute Hospital Course - Lab Results Lab Results: Most Recent Lab Values WBC 8.2 K/uL (4.8-10.8) 12/23/16 06:06 RBC 4.51 Mil/uL (4.40-5.90) 12/23/16 06:06 Hgb 12.7 g/dL (12.0-18.0) 12/23/16 06:06 Hct 38.4 % (35.0-51.0) 12/23/16 06:06 MCV 85.2 fL (80.0-94.0) 12/23/16 06:06 MCH 28.1 pg (27.0-31.0) 12/23/16 06:06 MCHC 33.0 g/dL (33.0-37.0) 12/23/16 06:06 RDW 14.0 % (11.5-14.5) 12/23/16 06:06 Plt Count 268 K/uL (130-400) 12/23/16 06:06 MPV 8.5 fL (7.2-11.7) 12/23/16 06:06 Neut % (Auto) 56.8 % (50.0-75.0) 12/23/16 06:06 Lymph % (Auto) 30.4 % (20.0-40.0) 12/23/16 06:06 [place] % (Auto) 5.5 % (0.0-10.0) 12/23/16 06:06 Eos % (Auto) 6.8 % (0.0-4.0) H 12/23/16 06:06 Baso % (Auto) 0.5 % (0.0-2.0) 12/23/16 06:06 Neut # 4.7 K/uL (1.8-7.0) 12/23/16 06:06 Lymph # 2.5 K/uL (1.0-4.3) 12/23/16 06:06 [place] # 0.5 K/uL (0.0-0.8) 12/23/16 06:06 Eos # 0.6 K/uL (0.0-0.7) 12/23/16 06:06 Baso # 0.0 K/uL (0.0-0.2) 12/23/16 06:06 PT 11.7 SECONDS (9.7-12.2) 12/21/16 12:08 INR 1.0 12/21/16 12:08 APTT 27 SECONDS (21-34) 12/21/16 12:08 Sodium 136 mmol/L (132-148) 12/23/16 06:06 Potassium 4.3 mmol/L (3.6-5.2) 12/23/16 06:06 Chloride 97 mmol/L (98-107) L 12/23/16 06:06 Carbon Dioxide 32 mmol/L (22-30) H 12/23/16 06:06 Anion Gap 11 (10-20) 12/23/16 06:06 BUN 20 mg/dL (9-20) 12/23/16 06:06 Creatinine 1.0 MG/DL (0.8-1.5) 12/23/16 06:06 Est GFR ( Amer) > 60 12/23/16 06:06 Est GFR (Non-Af Amer) > 60 12/23/16 06:06 POC Glucose (mg/dL) 240 mg/dL (65-110) H 12/23/16 16:17 Random Glucose 167 mg/dL (75-110) H 12/23/16 06:06 Hemoglobin A1c 7.6 % (4.2-6.5) H 12/22/16 06:12 Calcium 8.8 mg/dl (8.6-10.4) 12/23/16 06:06 Phosphorus 4.0 mg/dL (2.5-4.5) 12/23/16 06:06 Magnesium 1.9 mg/dL (1.6-2.3) 12/23/16 06:06 Total Bilirubin 0.9 mg/dL (0.2-1.3) 12/23/16 06:06 AST 19 U/L (17-59) 12/23/16 06:06 ALT 27 U/L (21-72) 12/23/16 06:06 Alkaline Phosphatase 90 U/L (38-126) 12/23/16 06:06 Total Creatine Kinase 43 U/L (55-170) L 12/22/16 06:12 CK-MB (Mass) 0.82 ng/mL (0.0-3.38) 12/22/16 06:12 Troponin I < 0.0120 ng/mL (0.00-0.120) 12/21/16 12:08 Troponin I, Quant < 0.0120 ng/mL (0.00-0.120) 12/22/16 00:04 NT-Pro-B Natriuret Pep 480 pg/mL (0-900) 12/21/16 12:08 Total Protein 7.2 g/dL (6.3-8.3) 12/23/16 06:06 Albumin 3.5 g/dL (3.5-5.0) 12/23/16 06:06 Globulin 3.6 gm/dL (2.2-3.9) 12/23/16 06:06 Albumin/Globulin Ratio 1.0 (1.0-2.1) 12/23/16 06:06 Triglycerides 220 mg/dL (0-149) H 12/22/16 06:12 Cholesterol 141 mg/dL (0-199) 12/22/16 06:12 LDL Cholesterol Direct 87 mg/dL (0-129) 12/22/16 06:12 HDL Cholesterol 28 mg/dL (30-70) L 12/22/16 06:12 Free T4 1.14 ng/dL (0.78-2.19) 12/22/16 06:12 TSH 3rd Generation 1.67 mIU/L (0.46-4.68) 12/22/16 06:12 - Hospital Course Hospital Course: As per admission: HPI: 56 year old male with PMHx significant for diabetes, HTN, hypercholesterolemia , s/p suspected CABG procedure at [facility] [facility] one month prior presents with chest pressure at rest for the past week with accompanying swelling of the lower extremities bilaterally. Patient states that the swelling has been intermittent off and on since the procedure. He denies radiation of pain, though admits to it being reproducible with palpation. Patient states that following the procedure, he was asked to take 6 medications for which he does not know the names of. He states that he was taking the medications until he ran out. He was asked to follow up with a housefellow after being discharged from [facility] however, he could not afford the $400 cost associated with the doctor's visit. Patient admits to paresthesias in his right hand. He admits to blurry vision for the past few weeks as well. He denies shortness of breath, headaches, palpitations, nausea, vomiting, diarrhea, constipation, recent travel, back pain or cough at this time. Patient speaks romanian and thus maintenance supervisor 2nd shift services were used for this evaluation. ([facility] #[id number]) Hospital course: Patient was admitted with consideration of chest pain to rule out NE and lower extremities edema. Patient received cardiac work up, which showed negative cardiac enzymes and no acute EKG changes. Cardiology consult was placed to Dr. Luciano, who recommended an outpatient stress test and continuation of medical therapy. Patient remained asymptomatic during his admission. Patient was discharged with appropriate medications and follow-up instructions. Patient was told how imperative it is for him to take his medications. Pertinent study: Chest X-ray: As before shallow lung volumes. No interval consolidation or fernandez worsening pulmonary vascular congestion. Cardiomegaly postsurgical changes Echocardiogram: Left ventricle: Normal size, normal diffuse systolic diffuse systolic . * Overall Ejection fraction 35% * Left atrium dilated * Aortic root normal * Right ventricle dilated * Pulmonary systolic pressures normal * Pulmonary valve normal * No pericardial effusion This is a brief summary of events. For a complete course, refer to the medical record. Discharge Exam - Head Exam Head Exam: ATRAUMATIC, NORMAL INSPECTION, NORMOCEPHALIC - Eye Exam Eye Exam: EOMI, Normal appearance - ENT Exam ENT Exam: Mucous Membranes Moist, Normal Exam - Respiratory Exam Respiratory Exam: Clear to PA & Lateral, NORMAL BREATHING PATTERN - Cardiovascular Exam Cardiovascular Exam: REGULAR RHYTHM, +S1, +S2 - GI/Abdominal Exam GI & Abdominal Exam: Normal Bowel Sounds, Soft - Extremities Exam Extremities exam: normal capillary refill, normal inspection - Neurological Exam Neurological exam: Alert, Oriented x3 - Psychiatric Exam Psychiatric exam: Normal Affect, Normal Mood - Skin Skin Exam: Dry, Normal Color, Warm Discharge Plan - Discharge Medications Prescriptions: Aspirin [Ecotrin] 81 mg PO DAILY #30 Clopidogrel [Plavix] 75 mg PO DAILY #30 tab Lisinopril [Zestril] 5 mg PO DAILY #30 tab metFORMIN [glucOPHAGE] 500 mg PO BID #60 tab Metoprolol Tartrate [Lopressor] 25 mg PO BID #30 tab Rosuvastatin Calcium [Crestor] 5 mg PO HS #30 tab - Follow Up Plan Condition: FAIR Disposition: HOME/ ROUTINE Instructions: Metoprolol (By mouth), Lisinopril (By mouth), Aspirin (By mouth) , Metformin (By mouth), Clopidogrel (By mouth), Rosuvastatin (By mouth), Heart Failure (DC), Chest Pain (DC), Heart Healthy Diet (DC), Diabetic Foot Care (DC) , Basic Carbohydrate Counting (DC), Meal Planning with the Plate Method (DC), Meal Planning with Diabetes Exchanges (DC) Additional Instructions: Please discharge patient home. Please continue the following medications as prescribed: 1. Aspirin 81mg PO daily 2. Plavix 75mg PO daily 3. Lisinopril 5mg PO daily 4. Metoprolol tartate 25mg PO BID 5. Crestor 5mg PO HS 6. Metformin 500mg PO BID Please follow up with [facility] within a week Please follow up with [facility] Att[employer], Dr. Luciano for an outpatient stress test within a week. Please return to the hospital if symptoms resume Referrals: [facility] at [facility] [Outside] Emmanuel Luciano MD [Staff Provider] - <Wade Silva - Last Filed: 12/24/16 09:23> Provider - Provider Date of Admission: 12/21/16 14:23 Attending physician: Wade Silva, DO Hospital Course - Lab Results Lab Results: Most Recent Lab Values WBC 8.2 K/uL (4.8-10.8) 12/23/16 06:06 RBC 4.51 Mil/uL (4.40-5.90) 12/23/16 06:06 Hgb 12.7 g/dL (12.0-18.0) 12/23/16 06:06 Hct 38.4 % (35.0-51.0) 12/23/16 06:06 MCV 85.2 fL (80.0-94.0) 12/23/16 06:06 MCH 28.1 pg (27.0-31.0) 12/23/16 06:06 MCHC 33.0 g/dL (33.0-37.0) 12/23/16 06:06 RDW 14.0 % (11.5-14.5) 12/23/16 06:06 Plt Count 268 K/uL (130-400) 12/23/16 06:06 MPV 8.5 fL (7.2-11.7) 12/23/16 06:06 Neut % (Auto) 56.8 % (50.0-75.0) 12/23/16 06:06 Lymph % (Auto) 30.4 % (20.0-40.0) 12/23/16 06:06 [place] % (Auto) 5.5 % (0.0-10.0) 12/23/16 06:06 Eos % (Auto) 6.8 % (0.0-4.0) H 12/23/16 06:06 Baso % (Auto) 0.5 % (0.0-2.0) 12/23/16 06:06 Neut # 4.7 K/uL (1.8-7.0) 12/23/16 06:06 Lymph # 2.5 K/uL (1.0-4.3) 12/23/16 06:06 [place] # 0.5 K/uL (0.0-0.8) 12/23/16 06:06 Eos # 0.6 K/uL (0.0-0.7) 12/23/16 06:06 Baso # 0.0 K/uL (0.0-0.2) 12/23/16 06:06 PT 11.7 SECONDS (9.7-12.2) 12/21/16 12:08 INR 1.0 12/21/16 12:08 APTT 27 SECONDS (21-34) 12/21/16 12:08 Sodium 136 mmol/L (132-148) 12/23/16 06:06 Potassium 4.3 mmol/L (3.6-5.2) 12/23/16 06:06 Chloride 97 mmol/L (98-107) L 12/23/16 06:06 Carbon Dioxide 32 mmol/L (22-30) H 12/23/16 06:06 Anion Gap 11 (10-20) 12/23/16 06:06 BUN 20 mg/dL (9-20) 12/23/16 06:06 Creatinine 1.0 MG/DL (0.8-1.5) 12/23/16 06:06 Est GFR ( Amer) > 60 12/23/16 06:06 Est GFR (Non-Af Amer) > 60 12/23/16 06:06 POC Glucose (mg/dL) 240 mg/dL (65-110) H 12/23/16 16:17 Random Glucose 167 mg/dL (75-110) H 12/23/16 06:06 Hemoglobin A1c 7.6 % (4.2-6.5) H 12/22/16 06:12 Calcium 8.8 mg/dl (8.6-10.4) 12/23/16 06:06 Phosphorus 4.0 mg/dL (2.5-4.5) 12/23/16 06:06 Magnesium 1.9 mg/dL (1.6-2.3) 12/23/16 06:06 Total Bilirubin 0.9 mg/dL (0.2-1.3) 12/23/16 06:06 AST 19 U/L (17-59) 12/23/16 06:06 ALT 27 U/L (21-72) 12/23/16 06:06 Alkaline Phosphatase 90 U/L (38-126) 12/23/16 06:06 Total Creatine Kinase 43 U/L (55-170) L 12/22/16 06:12 CK-MB (Mass) 0.82 ng/mL (0.0-3.38) 12/22/16 06:12 Troponin I < 0.0120 ng/mL (0.00-0.120) 12/21/16 12:08 Troponin I, Quant < 0.0120 ng/mL (0.00-0.120) 12/22/16 00:04 NT-Pro-B Natriuret Pep 480 pg/mL (0-900) 12/21/16 12:08 Total Protein 7.2 g/dL (6.3-8.3) 12/23/16 06:06 Albumin 3.5 g/dL (3.5-5.0) 12/23/16 06:06 Globulin 3.6 gm/dL (2.2-3.9) 12/23/16 06:06 Albumin/Globulin Ratio 1.0 (1.0-2.1) 12/23/16 06:06 Triglycerides 220 mg/dL (0-149) H 12/22/16 06:12 Cholesterol 141 mg/dL (0-199) 12/22/16 06:12 LDL Cholesterol Direct 87 mg/dL (0-129) 12/22/16 06:12 HDL Cholesterol 28 mg/dL (30-70) L 12/22/16 06:12 Free T4 1.14 ng/dL (0.78-2.19) 12/22/16 06:12 TSH 3rd Generation 1.67 mIU/L (0.46-4.68) 12/22/16 06:12 Attending/Attestation - Attestation I have personally seen and examined this patient.: Yes I have fully participated in the care of the patient.: Yes I have reviewed all pertinent clinical information, including history, physical exam and plan: Yes Notes (Text): Medical Attending: Patient was seen and examined by me, agree with the above note by the resident. Patient will be discharged now. Because he was taking no medication whatsoever when he came in, he was started on ASA, Plavix, Statin, BB, and GUILLERMINA-I. He also completed an echo as well. The patient will need to follow up with the [facility] with regards to future echos and checkups. As mentioned before, the patient - probably due to language barrier, does not have a good grasp of the situation and so we have had to use a maintenance supervisor 2nd shift everytime we meet him thank you Wade Silva
--- NOTE | 2016-12-24 10:20 | VASCLAB ---
PROCEDURE: Lower Extremity Venous Duplex Exam. HISTORY: lower extremity edema and pain PRIORS: None. TECHNIQUE: Bilateral common femoral, femoral, popliteal and posterior tibial, peroneal and great saphenous veins were evaluated. Flow was assessed with color Doppler, compressibility, assessment of phasic flow and augmentation response. Report prepared by Colin Luther, SUKH, RVT FINDINGS: RIGHT: 1. Common Femoral Vein: 1.1. Compressibility - Fully compressible: Thrombus - None : Flow - Phasic: Augmentation -Normal: Reflux - None. 2. Femoral Vein: 2.1. Compressibility - Fully compressible: Thrombus - None : Flow - Phasic: Augmentation -Normal: Reflux - None. 3. Popliteal Vein: 3.1. Compressibility - Fully compressible: Thrombus - None : Flow - Phasic: Augmentation -Normal: Reflux - None. 4. Posterior Tibial Vein: 4.1. Compressibility - Fully compressible: Thrombus - None: Flow - Phasic: Augmentation -Normal: Reflux - None. 5. Peroneal Vein: 5.1. Compressibility - Fully compressible: Thrombus - None: Flow - Phasic: Augmentation -Normal: Reflux - None. 6. Great Saphenous Vein: 6.1. Compressibility - : Thrombus - : Flow - : Augmentation - : Reflux - . LEFT: 1. Common Femoral Vein: 1.1. Compressibility - Fully compressible: Thrombus - None: Flow - Phasic: Augmentation -Normal: Reflux - None. 2. Femoral Vein: 2.1. Compressibility - Fully compressible: Thrombus - None: Flow - Phasic: Augmentation -Normal: Reflux - None. 3. Popliteal Vein: 3.1. Compressibility - Fully compressible: Thrombus - None : Flow - Phasic: Augmentation -Normal: Reflux - None. 4. Posterior Tibial Vein: 4.1. Compressibility - Fully compressible: Thrombus - None: Flow - Phasic: Augmentation -Normal: Reflux - None. 5. Peroneal Vein: 5.1. Compressibility - Fully compressible: Thrombus - None: Flow - Phasic: Augmentation -Normal: Reflux - None. 6. Great Saphenous Vein: 6.1. Compressibility - Fully compressible: Thrombus - None: Flow - Phasic: Augmentation - Normal: Reflux - None. OTHER FINDINGS: Right: The right greater saphenous vein has been previously removed. Left: None significant. IMPRESSION: Right: No evidence of deep or superficial vein thrombosis of the right lower extremity. Normal valve function noted of the right side. Left: No evidence of deep or superficial vein thrombosis of the left lower extremity. Normal valve function noted of the left side.
--- NOTE | 2016-12-24 15:35 | CARD ---
APPROVED REPORT EKG Measurement Heart [id number] <Conclusion> Normal sinus rhythm Low voltage QRS Cannot rule out Inferior infarct, age undetermined Abnormal ECG
== END 2016-12-23 17:20 | disposition home or self-care (01) ==
LOC: C.ER 10:48 → C.9E 14:23 → C.6T 19:03
PROVIDERS: ADMIT Hospitalist; ATTEND Hospitalist
DX: R07.9 Chest pain, unspecified (principal); I25.10 Atherosclerotic heart disease of native coronary artery without angina pectoris; I10 Essential (primary) hypertension; Z95.1 Presence of aortocoronary bypass graft; E78.00 Pure hypercholesterolemia, unspecified; E11.9 Type 2 diabetes mellitus without complications; Z87.891 Personal history of nicotine dependence
CPT/HCPCS: 36415; 71010; 71020; 80053; 80061; 82550; 82553; 82947; 82948; 83036; 83735; 83880; 84100; 84439; 84443; 84484; 85025; 85610; 85730; 90732; 93005; 93306; 93970; 96374; 99285; G0009; G0378; J1644; J1940